=== PATIENT | female | born 1980 | race Caucasian/White ===

== ENCOUNTER 2024-01-15 15:19 | Emergency (ER) | payer SELFPAY ==
[~2024-01-15] VITALS: Ht 177.8 cm; Wt 109.1 kg
[2024-01-15 15:26] VITALS: TEMP 97.5
[2024-01-15 16:18] LABS: BASO % 0.5 % (0.0-2.0); EOS # 0.9 K/mm3 (0.0-0.7); EOS % 11.3 % (0.0-4.0); GRAN # 5.8 K/mm3 (1.4-6.5); GRAN % 71.9 % (42.2-75.2); LYMPH # 0.7 K/mm3 (1.2-3.4); LYMPH % 9.2 % (20.0-51.0); MEAN CELL VOLUME 86 fl (80.0-100.0); MEAN CORPUSCULAR HEMOGLOBIN 26 pg (27-31); MEAN CORPUSCULAR HGB CONC 31 g/dl (33.0-37.0); MEAN PLATELET VOLUME 9.2 fl (7.4-10.4); MONO # 0.6 K/mm3 (0.1-0.6); MONO % 6.9 % (1.7-9.3); PLATELET COUNT 247 K/mm3 (130-400); RED BLOOD COUNT 3.79 M/mm3 (4.10-5.30); REDCELL DISTRIBUTION WIDTH-CV 14.4 % (11.5-14.5)
[2024-01-15 16:19] LABS: HEMATOCRIT 32.6 % (37.0-47.0)
[2024-01-15 16:38] LABS: ALANINE AMINOTRANSFERASE 6 U/L (0-55); ALBUMIN 3.1 g/dL (3.5-5.0); ALKALINE PHOSPHATASE 82 U/L (40-150); ANION GAP 8 mmol/L (7-16); AST,SGOT 16 U/L (5-34); BILIRUBIN,TOTAL 0.3 mg/dL (0.2-1.2); BLOOD UREA NITROGEN 17 mg/dL (7-19); CALCIUM 9.4 mg/dL (8.4-10.2); CHLORIDE 104 mEq/L (98-107); CREATININE, serum 0.83 mg/dL (0.57-1.11); GLUCOSE 135 mg/dL (70-99); POTASSIUM 3.6 mEq/L (3.5-4.5); SODIUM 136 mEq/L (136-145); TOTAL PROTEIN 6.3 g/dl (6.2-8.1)
[2024-01-15 16:49] LABS: TROPONIN-I < 0.010 ng/mL (0.00-0.033)
[2024-01-15] MEDS ORDERED: Penicillin V-K 250 MG TAB PO ONE (18:15)
[2024-01-15 18:32] VITALS: BP 133/96; PULSE 81
== END 2024-01-15 19:46 | disposition home or self-care (01) ==
LOC: COL.ER 15:19
PROVIDERS: Emergency Medicine
DX: K04.7 Periapical abscess without sinus (principal)